=== PATIENT | male | born 1985 | race Caucasian/White ===

== ENCOUNTER 2020-05-24 19:20 | Emergency (ER) | payer MEDICAID, SELFPAY ==
[2020-05-24 19:27] VITALS: BP 107/72; PULSE 75; RESP 16; TEMP 36.7; O2SAT 96; BMI 29.4
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
[2020-05-24 20:15] VITALS: BP 98/66; PULSE 82; RESP 16
== END 2020-05-24 21:20 | disposition home or self-care (01) ==
PROVIDERS: Emergency Provider Emergency Medicine; PCP Family Medicine
DX: S39.012A Strain of muscle, fascia and tendon of lower back, initial encounter (principal); S80.01XA Contusion of right knee, initial encounter; V89.2XXA Person injured in unspecified motor-vehicle accident, traffic, initial encounter; F17.210 Nicotine dependence, cigarettes, uncomplicated
CPT/HCPCS: 12345; 72100; 73562; 99281; 99282